=== PATIENT | female | born 1955 | race Caucasian/White ===

== ENCOUNTER 2016-12-08 05:29 | Emergency (ER) | payer MEDICARE ==
[2016-12-08] MEDS ORDERED: ORPH-8 PO (05:37)
[2016-12-08] MEDS ORDERED: PREG100CA PO (05:37)
[2016-12-08] MEDS ORDERED: MOBI4TAB PO (05:37)
[2016-12-08] MEDS ORDERED: SYNT75TA PO (05:41)
[2016-12-08 05:47] VITALS: BP 131/79
[2016-12-08] MEDS ORDERED: COLA100C5 PO (06:19)
[2016-12-08] MEDS ORDERED: CYCL5TAB PO (06:19)
== END 2016-12-08 06:47 | disposition home or self-care (01) ==
LOC: M ED 05:29
DX: M54.5 Low back pain (principal)

== ENCOUNTER → 2017-06-05 | Outpatient (CLI) | payer MEDICARE | LOC: M WHC 12:58 | DX: Z12.31 Encounter for screening mammogram for malignant neoplasm of breast (principal); Z78.0 Asymptomatic menopausal state; Z79.899 Other long term (current) drug therapy | CPT/HCPCS: 77067 ==

== ENCOUNTER → 2017-06-26 | Outpatient (CLI) | payer MEDICARE | LOC: M LRY 14:40 | DX: M79.631 Pain in right forearm (principal); M19.041 Primary osteoarthritis, right hand; M25.562 Pain in left knee; M25.531 Pain in right wrist | CPT/HCPCS: 73090; 96372 ==

== ENCOUNTER → 2018-06-06 | Outpatient (REF) | payer MEDICARE ==
[~2018-06-06] MED LIST: COLA100C5 PO; CYCL5TAB PO; MOBI4TAB PO; ORPH-8 PO; PREG100CA PO; SYNT75TA PO
== END ==
LOC: M SFHCWAGY 09:16
PROVIDERS: ATTEND Nurse Practitioner Family
DX: Z12.4 Encounter for screening for malignant neoplasm of cervix (principal); N95.2 Postmenopausal atrophic vaginitis

== ENCOUNTER → 2018-06-06 | Outpatient (CLI) | payer MEDICARE ==
--- NOTE | 2018-06-06 10:12 | REPMRS ---
Patient History The patient states she had a clinical breast exam in 06/2018. Patient is postmenopausal. Family history of breast cancer in paternal aunt, breast cancer under age 50 in niece, ovarian cancer under age 50 and breast cancer under age 50 in maternal aunt, breast cancer at age 60 in paternal cousin. No Hormone Replacement Therapy Digital Woman Screen Mammo: June 06, 2018 - Exam #: [id number] Bilateral CC and MLO view(s) were taken. Technologist: Aubrie Javier, Technologist Prior study comparison: June 05, 2017, digital woman screen mammo performed at [facility]. March 28, 2016, digital woman screen mammo performed at [facility]. June 20, 2002, bilateral screening mammogram performed at [facility]. FINDINGS: There are scattered fibroglandular densities. There has been no change in the appearance of the mammogram from the prior studies. There is a mild amount of scattered fibroglandular density which is fairly symmetric. There is no interval development of dominant mass, architectural distortion, or clustered microcalcification suggestive of malignancy. 3-D tomosynthesis shows no additional findings. Assessment: BI-RADS/ACR category 1 mammogram. Negative. Recommendation Routine screening mammogram of both breasts in 1 year (for women over age 40). This patient's Lifetime Breast Cancer RIsk is estimated at 11.2 %. This mammogram was interpreted with the aid of an FDA-approved computer-aided dectection system. Electronically Signed By: Bobo Clarke MD 06/06/18 4027
== END ==
LOC: M WHC 08:56
PROVIDERS: ATTEND Nurse Practitioner Family
DX: Z12.31 Encounter for screening mammogram for malignant neoplasm of breast (principal); Z78.0 Asymptomatic menopausal state; Z12.4 Encounter for screening for malignant neoplasm of cervix; Z12.12 Encounter for screening for malignant neoplasm of rectum
CPT/HCPCS: 77063; 77067; 82270; G0101; G0123

== ENCOUNTER 2018-08-16 09:38 | Day surgery (SDC) | payer MEDICARE ==
[~2018-08-16] VITALS: Ht 154.9 cm; Wt 60.3 kg
[2018-08-16] MEDS ORDERED: NS 1,000 ML IV ONE (10:45)
[2018-08-16] MEDS ORDERED: PROPOFOL 200 MG/20 ML VIAL As Ordered ONE ×3 (11:49→12:57)
--- NOTE | 2018-08-16 12:04 | ROOR ---
Patient Name: Gabbie Bates Procedure Date: 08/16/2018 11:37 AM Date of : 1955 Age: 63 Room: [facility] Gender: Female Note Status: Finalized Procedure: Colonoscopy Indications: Screening for colorectal malignant neoplasm, Incidental constipation noted Providers: Humphrey VALLADARES MD Referring MD: Hector Anne MD Requesting Provider: Medicines: Monitored Anesthesia Care Complications: No immediate complications. Procedure: Pre-Anesthesia Assessment: - The heart rate, respiratory rate, oxygen saturations, blood pressure, adequacy of pulmonary ventilation, and response to care were monitored throughout the procedure. The Colonoscope was introduced through the anus and advanced to the cecum, identified by appendiceal orifice and ileocecal valve. The colonoscopy was performed without difficulty. The patient tolerated the procedure well. The quality of the bowel preparation was good. Findings: The perianal and digital rectal examinations were normal. Small Internal Hemorrhoids. The entire examined colon appeared normal on direct and retroflexion views. Impression: - Small Internal Hemorrhoids. - The entire examined colon is normal on direct and retroflexion views. - No specimens collected. Recommendation: - Repeat colonoscopy in 10 years for screening purposes. Humphrey Valladares MD Humphrey VALLADARES MD 08/16/2018 12:03:24 PM This report has been signed electronically. Number of Addenda: 0 Note Initiated On: 08/16/2018 11:37 AM Estimated Blood Loss: Estimated blood loss: none.
[2018-08-16 12:10] VITALS: BP 119/74
== END 2018-08-16 12:24 | disposition home or self-care (01) ==
LOC: M OPP 09:38
PROVIDERS: ATTEND Internal Medicine Gastroenterology
DX: Z12.11 Encounter for screening for malignant neoplasm of colon (principal); K64.8 Other hemorrhoids; Z79.899 Other long term (current) drug therapy

== ENCOUNTER → 2019-05-19 | Outpatient (REF) | payer MEDICARE ==
[~2019-05-19] MED LIST changes: -ORPH-8 PO; +ORPH100T2 PO
== END ==
LOC: M SFHCLERA 13:48
PROVIDERS: ATTEND Physician Assistant
DX: J02.9 Acute pharyngitis, unspecified (principal)

== ENCOUNTER → 2019-07-08 | Outpatient (CLI) | payer MEDICARE ==
--- NOTE | 2019-07-09 16:49 | REP ---
BILATERAL SCREENING DIGITAL MAMMOGRAM WITH 3D TOMOSYNTHESIS: There are no palpable abnormalities or other breast complaints. The the patient states she had a clinical breast examination 2019. The Tyrer-Cuzick Lifetime Breast Cancer Risk Score is: 10.6% . Comparison is 03/28/2016. There are scattered areas of fibroglandular density. There is no dominant mass, micro calcific cluster or architectural distortion that would indicate malignancy. There are no additional findings on 3D tomosynthesiss. There is no change from the prior study. Impression: BIRADS/ACR category 1 mammogram. Negative. Recommendation: Routine annual screening mammography. This mammogram was interpreted with the aid of a FDA approved computer-aided detection system. A. Negative mammogram reports should not delay biopsy if a dominant or clinically suspicious mass is present. B. Not all breast cancers are identified by mammography or tomosynthesis. C. Adenosis and dense breasts may obscure an underlying neoplasm. Patient letter M1. Electronically Signed by Lorenzo Morrissey MD 07/09/2019 04:41 P
== END ==
LOC: M WHC 08:49
PROVIDERS: ATTEND Nurse Practitioner Family
DX: Z12.31 Encounter for screening mammogram for malignant neoplasm of breast (principal)
CPT/HCPCS: 77063; 77067; G0463

== ENCOUNTER → 2020-07-09 | Outpatient (CLI) | payer MEDICARE ==
--- NOTE | 2020-07-09 10:37 | REPMRS ---
Patient History The patient states she had a clinical breast exam in July 2020. Family history of breast cancer in paternal aunt, breast cancer under age 50 in niece, ovarian cancer under age 50 and breast cancer under age 50 in maternal aunt, breast cancer at age 60 in paternal cousin. No Hormone Replacement Therapy Digital Woman Screen Mammo: July 09, 2020 - Exam #: [id number] Bilateral CC and MLO view(s) were taken. Technologist: RT Richy Prior study comparison: July 08, 2019, bilateral digital woman screen mammo performed at [facility]. June 06, 2018, bilateral digital woman screen mammo performed at [facility]. June 05, 2017, digital woman screen mammo performed at [facility]. FINDINGS: There are scattered fibroglandular densities. The Volpara volumetric breast density category is:B. There has been no change in the appearance of the mammogram from the prior studies. There is a mild amount of scattered fibroglandular density which is fairly symmetric. There is no interval development of dominant mass, architectural distortion, or grouped microcalcification suggestive of malignancy. 3-D tomosynthesis shows no additional findings. Assessment: BI-RADS/ACR category 1 mammogram. Negative Mammogram. Recommendation Routine screening mammogram of both breasts in 1 year (for women over age 40). This patient's [facility] Lifetime Breast Cancer Risk is estimated at 10.0 %. This mammogram was interpreted with the aid of an FDA-approved computer-aided dectection system. Electronically Signed By: Bobo Clarke MD 07/09/20 1037
== END ==
LOC: M WHC 09:09
PROVIDERS: ATTEND Nurse Practitioner Family
DX: Z12.31 Encounter for screening mammogram for malignant neoplasm of breast (principal)

== ENCOUNTER → 2020-08-02 | Outpatient (CLI) | payer MEDICARE ==
--- NOTE | 2020-08-02 15:22 | DEXAMM ---
INDICATION: MENOPAUSAL DISORDER. COMPARISON: 04/21/2016. TECHNIQUE: Bone density was measured using dual-energy x-ray absorptiometry (DEXA). FINDINGS: AP SPINE L1-L4 BMD 1.124 g/cm2 Young Adult T-Score -0.6 Age Matched Z-Score 1.1. LT FEMUR, TOTAL BMD 0.72 g/cm2 Young Adult T-Score -1.8 Age Matched Z-Score -0.5. LT NECK BMD 0.788 g/cm2 Young Adult T-Score -1.8 Age Matched Z-Score -0.2. RT FEMUR, TOTAL BMD 0.869 g/cm2 Young Adult T-Score -1.1 Age Matched Z-Score 0.2. RT NECK BMD 0.843 g/cm2 Young Adult T-Score -1.4 Age Matched Z-Score 0.2. IMPRESSION: There is normal bone density of the spine. There is low bone density of the left hip. There is low bone density of the right hip. The density of the spine has increased 0.3% since the initial exam on 04/21/2016. The density of the left hip has decreased 2.4% since initial exam on 04/21/2016. The density of the right hip has decreased 6.6% since the initial exam on 04/21/2016. FOLLOW-UP: Recommendation for the next bone density exam: 2 years. <Electronically signed by Lorenzo Johnson > 08/02/20 1513
== END ==
LOC: M WHC 13:59
PROVIDERS: ATTEND Nurse Practitioner Family
DX: N95.9 Unspecified menopausal and perimenopausal disorder (principal); M85.851 Other specified disorders of bone density and structure, right thigh; M85.852 Other specified disorders of bone density and structure, left thigh

== ENCOUNTER → 2021-01-06 | Outpatient (CLI) | payer MEDICARE ==
--- NOTE | 2021-01-06 13:35 | REP ---
INDICATION: HYPOTHYROIDISM. COMPARISON: None. TECHNIQUE: Multiple ultrasonographic images of the thyroid. FINDINGS: The thyroid right lobe measures 3.9 x 1.3 x 1.4 cm. The thyroid left lobe measures 3.9 x 1.1 x 1.7 cm. The isthmus measures 3 mm in thickness. The thyroid is normal size. The thyroid parenchyma is diffusely heterogeneous. No focal thyroid nodules or masses are identified except for a tiny 6 mm nodule at the extreme lower pole of the left lobe. IMPRESSION: Normal-sized thyroid gland. Heterogeneous thyroid parenchyma. 6 mm nodule at the extreme lower pole of the left lobe. <Electronically signed by Lorenzo Morrissey > 01/06/21 4450
== END ==
LOC: M RAD 12:44
PROVIDERS: ATTEND Internal Medicine
DX: E03.9 Hypothyroidism, unspecified (principal); E04.2 Nontoxic multinodular goiter

== ENCOUNTER → 2021-07-11 | Outpatient (CLI) | payer MEDICARE | LOC: M WHC 09:11 | PROVIDERS: ATTEND Advanced Practice Midwife | DX: Z12.31 Encounter for screening mammogram for malignant neoplasm of breast (principal) ==

== ENCOUNTER → 2022-08-18 | Outpatient (REF) | payer MEDICARE | LOC: M SFHCWAGY 17:19 | PROVIDERS: ATTEND Advanced Practice Midwife | DX: Z12.4 Encounter for screening for malignant neoplasm of cervix (principal); N95.8 Other specified menopausal and perimenopausal disorders ==

== ENCOUNTER → 2022-08-18 | Outpatient (CLI) | payer MEDICARE | LOC: M WHC 10:26 | PROVIDERS: ATTEND Advanced Practice Midwife | DX: Z12.31 Encounter for screening mammogram for malignant neoplasm of breast (principal) ==

== ENCOUNTER → 2023-05-01 | Outpatient (CLI) | payer MEDICARE ==
[~2023-05-01] MED LIST changes: -ORPH100T2 PO; +ORPH100T48 PO
[2023-05-01 08:11] LABS: HEMATOCRIT 37.4 % (36.0-47.0); HEMOGLOBIN 11.7 g/dl (12.0-15.5); MEAN CORPUSCULAR HGB CONC 31.3 g/dl (32.0-36.5); MEAN CORPUSCULAR VOLUME 86.4 fl (80.0-96.0); PLATELET COUNT, AUTOMATED 352 10^3/uL (150-450); RED BLOOD COUNT 4.33 10^6/uL (4.00-5.40); WHITE BLOOD COUNT 4.6 10^3/uL (4.0-10.0)
[2023-05-01 08:17] LABS: APPEARANCE, URINE CLEAR (CLEAR); BACTERIA, URINE AUTO NEGATIVE (NEGATIVE); BILIRUBIN, URINE AUTO NEGATIVE (NEGATIVE); BLOOD, URINE BLOOD NEGATIVE (NEGATIVE); COLOR, URINE YELLOW (YELLOW); GLUCOSE, URINE (UA) AUTO NEGATIVE (NEGATIVE); KETONE, URINE AUTO NEGATIVE (NEGATIVE); LEUKOCYTE ESTERASE, URINE AUTO NEGATIVE (NEGATIVE); MUCUS, URINE SMALL (NEGATIVE); NITRITE, URINE AUTO NEGATIVE (NEGATIVE); PROTEIN, URINE AUTO NEGATIVE (NEGATIVE); RBC, URINE AUTO 0 /HPF (0-3); SPECIFIC GRAVITY URINE AUTO 1.013 (1.002-1.035); SQUAMOUS EPITHELIAL CELL UR AU 0 /HPF (0-6); UROBILINOGEN, URINE AUTO 0.2 mg/dL (0.0-2.0); WBC, URINE AUTO 1 /HPF (0-3)
[2023-05-01 08:32] LABS: HEMOGLOBIN A1c 5.1 % (4.0-6.0)
[2023-05-01 08:37] LABS: ALBUMIN 3.9 G/DL (3.2-5.2); ALKALINE PHOSPHATASE 65 U/L (46-116); ALT/SGPT 18 U/L (7.0-40); AST/SGOT 14 U/L (<34); BILIRUBIN,TOTAL 0.6 MG/DL (0.3-1.2); BLOOD UREA NITROGEN 15 MG/DL (9-23); CALCIUM LEVEL 9.3 MG/DL (8.3-10.6); CARBON DIOXIDE LEVEL 28 MMOL/L (20-31); CHLORIDE LEVEL 104 MMOL/L (98-107); CHOLESTEROL LEVEL 198 MG/DL (<200); CHOLESTEROL RISK RATIO 3.13 (<5); FREE T4 1.37 NG/DL (0.89-1.76); GLOMERULAR FILTRATION RATE > 60.0 (>39); GLUCOSE, FASTING 81 MG/DL (74-106); HDL CHOLESTEROL 63.1 MG/DL (>40); LDL CHOLESTEROL 115.3 MG/DL (<100); NON-HDL-C 134.9 MG/DL; POTASSIUM SERUM 4.5 MMOL/L (3.5-5.1); SODIUM LEVEL 137 MMOL/L (136-145); TOTAL 25(OH) VITAMIN D 50.4 NG/ML (20.0-100.0); TOTAL PROTEIN 7.1 G/DL (5.7-8.2); TRIGLYCERIDES LEVEL 98 MG/DL (<150)
== END ==
LOC: M LAB 06:49
PROVIDERS: ATTEND Family Medicine
DX: E78.2 Mixed hyperlipidemia (principal); I45.10 Unspecified right bundle-branch block; R73.9 Hyperglycemia, unspecified; E55.9 Vitamin D deficiency, unspecified

== ENCOUNTER → 2023-08-21 | Outpatient (CLI) | payer MEDICARE | LOC: M WHC 08:25 | PROVIDERS: ATTEND Advanced Practice Midwife | DX: Z12.31 Encounter for screening mammogram for malignant neoplasm of breast (principal); R92.323 Mammographic fibroglandular density, bilateral breasts ==

== ENCOUNTER → 2024-12-12 | Outpatient (CLI) | payer MEDICARE ==
[~2024-12-12] MED LIST changes: -CYCL5TAB PO; +CYCL5TAB4 PO; +PREG-35 PO; -PREG100CA PO
== END ==
LOC: M WHC 09:58
PROVIDERS: ATTEND Advanced Practice Midwife
DX: Z12.31 Encounter for screening mammogram for malignant neoplasm of breast (principal); R92.323 Mammographic fibroglandular density, bilateral breasts